=== PATIENT | female | born 1985 | race African-American/Black ===

== ENCOUNTER 2019-09-20 08:58 | Emergency (ER) | payer BC ==
[~2019-09-20] VITALS: Ht 162.6 cm; Wt 50.0 kg
[2019-09-20 09:01] VITALS: BP 110/68
== END 2019-09-20 16:33 | disposition left against medical advice (07) ==
LOC: ER 09:04
DX: R10.9 Unspecified abdominal pain (principal); Z53.21 Procedure and treatment not carried out due to patient leaving prior to being seen by health care provider